=== PATIENT | female | born 1955 | race Caucasian/White ===

== ENCOUNTER 2018-09-13 13:31 | Emergency (ER) | payer SELFPAY ==
[2018-09-13 19:05] LABS: WHITE BLOOD COUNT 6.4 10^3/ul (4.8-10.8)
[2018-09-13 19:05] LABS: ABNORMAL IP MESSAGE 1; HEMATOCRIT 30.7 % (37.0-47.0); HEMOGLOBIN 10.2 g/dl (12.0-16.0); MEAN CORPUSCULAR HEMOGLOBIN 32.3 pg (29.0-33.0); MEAN CORPUSCULAR HGB CONC 33.2 g/dl (32.0-37.0); MEAN CORPUSCULAR VOLUME 97.2 fl (82.0-101.0); PLATELET COUNT 89 10^3/UL (140-415); RED BLOOD COUNT 3.16 10^6/ul (4.20-5.40); RED CELL DISTRIBUTION WIDTH 13.3 % (11.5-14.5)
[2018-09-13 19:08] LABS: ADD MAN DIFF? YES; POSITIVE DIFF @See below
[2018-09-13 19:14] LABS: ADD UMIC YES; UR ASCORBIC ACID NEGATIVE (NEGATIVE); UR BACTERIA FEW /HPF (NONE SEEN); UR BILIRUBIN (Dip) NEGATIVE (NEGATIVE); UR BLOOD (Dip) 2+ mg/dL (NEGATIVE); UR CLARITY CLEAR (CLEAR); UR COLOR STRAW (YELLOW); UR GLUCOSE (Dip) NEGATIVE (NEGATIVE); UR KETONES (Dip) NEGATIVE (NEGATIVE); UR LEUKOCYTE ESTERASE (Dip) 1+ Leu/ul (NEGATIVE); UR NITRITE (Dip) NEGATIVE (NEGATIVE); UR RBC 1 /HPF (0-5); UR SPECIFIC GRAVITY (Dip) 1.003 (1.003-1.030); UR TOTAL PROTEIN (Dip) NEGATIVE (NEGATIVE); UR UROBILINOGEN (Dip) NEGATIVE (NEGATIVE); UR WBC 4 /HPF (0-5)
[2018-09-13] MEDS: SOD CHLORIDE 0.9% 1,000 ML IV (19:28)
[2018-09-13] MEDS: ONDANSETRON 4 MG INJ IV (19:29)
[2018-09-13] MEDS: KETOROLAC 15 MG INJ IV (19:29)
[2018-09-13 19:31] LABS: ALANINE AMINOTRANSFERASE 24 IU/L (13-69); ALBUMIN 3.4 g/dl (3.3-4.9); ALKALINE PHOSPHATASE 127 IU/L (42-121); ANION GAP 10 (5-13); ASPARTATE AMINO TRANSFERASE 30 IU/L (15-46); BILIRUBIN,INDIRECT 0.2 mg/dl (0-1.1); BILIRUBIN,TOTAL 0.2 mg/dl (0.2-1.3); BLOOD UREA NITROGEN 10 mg/dl (7-20); CALCIUM 8.1 mg/dl (8.4-10.2); CARBON DIOXIDE 26 mmol/L (21-31); CHLORIDE 100 mmol/L (97-110); CREATININE 0.88 mg/dl (0.44-1.00); Estimated GFR > 60 mL/min (>60); GLUCOSE 113 mg/dl (70-220); LIPASE 59 U/L (23-300); POTASSIUM 4.1 mmol/L (3.5-5.1); SODIUM 136 mmol/L (135-144)
[2018-09-13] MEDS: CEFTRIAXONE 1 GM/50 ML (PMX) 50 ML IVPB (20:59)
[2018-09-13 22:15] LABS: ANISOCYTOSIS 1+ (0-0); LYMPHOCYTES #M 1.1 10^3/ul (0.8-2.9); LYMPHOCYTES % (M) 18 % (15-51); MONOCYTE #M 0.7 10^3/ul (0.3-0.9); MONOCYTES % (M) 11 % (0-11); REACTIVE LYMPHOCYTES #M 0.3 10^3/ul (0.0-0.0); REACTIVE LYMPHOCYTES% (M) 6 % (0-0); SEGMENTED NEUTROPHILS (M) % 65 % (39-77); SMUDGE%M 25 % (0-0)
== END 2018-09-13 21:37 | disposition home or self-care (01) ==
LOC: E/R 13:31
DX: N39.0 Urinary tract infection, site not specified (principal); C43.9 Malignant melanoma of skin, unspecified; R91.1 Solitary pulmonary nodule
CPT/HCPCS: 36415; 74176; 80053; 81001; 83605; 83690; 85025; 87040; 87086; 96361; 96374; 96375; 99285-25

== ENCOUNTER 2018-09-19 10:33 | Inpatient (IN) | payer OTHER ==
[~2018-09-19 10:33] MED LIST: ETOMIDATE 20 MG INJ; SUCCINYLCHOLINE CHLORIDE 100 MG/5 ML SYG IV
[2018-09-19 11:20] LABS: ADD MAN DIFF? NO
[2018-09-19] MEDS: SODIUM CHLORIDE 0.9% 1L BAG IV* (11:21)
[2018-09-19 11:24] LABS: WHITE BLOOD COUNT 8.6 10^3/ul (4.8-10.8)
[2018-09-19 11:24] LABS: BASOPHILS % 0.2 % (0.0-2.0); EOSINOPHILS # 0.2 10^3/ul (0.0-0.5); EOSINOPHILS % 2.2 % (0.0-7.0); HEMATOCRIT 27.8 % (37.0-47.0); LYMPHOCYTES # 2.1 10^3/ul (0.8-2.9); LYMPHOCYTES % 24.6 % (15.0-51.0); MEAN CORPUSCULAR HEMOGLOBIN 32.1 pg (29.0-33.0); MEAN CORPUSCULAR HGB CONC 32.4 g/dl (32.0-37.0); MEAN CORPUSCULAR VOLUME 99.3 fl (82.0-101.0); MEAN PLATELET VOLUME 10.9 fl (7.4-10.4); MONOCYTES % 11.8 % (0.0-11.0); NEUTROPHIL # 5.2 10^3/ul (1.6-7.5); NEUTROPHILS % 60.7 % (39.0-77.0); NUCLEATED RED BLOOD CELLS% 0.2 /100WBC (0.0-0.0); PLATELET COUNT 125 10^3/UL (140-415); RED CELL DISTRIBUTION WIDTH 14.1 % (11.5-14.5)
[2018-09-19] MEDS: AZTREONAM 1 GM/NS (PMX) 50 ML IVPB ×2 (11:25→21:47)
[2018-09-19 11:44] LABS: INR 1.07; PT RATIO 1.1
[2018-09-19 11:45] LABS: PARTIAL THROMBOPLASTIN TIME 37.4 Sec (23.0-35.0)
[2018-09-19 11:47] LABS: ALANINE AMINOTRANSFERASE 19 IU/L (13-69); ALBUMIN/GLOBULIN RATIO 1.11; ALKALINE PHOSPHATASE 209 IU/L (42-121); ANION GAP 12 (5-13); ASPARTATE AMINO TRANSFERASE 33 IU/L (15-46); BILIRUBIN,INDIRECT 0.2 mg/dl (0-1.1); BILIRUBIN,TOTAL 0.2 mg/dl (0.2-1.3); BLOOD UREA NITROGEN 20 mg/dl (7-20); CALCIUM 7.7 mg/dl (8.4-10.2); CARBON DIOXIDE 24 mmol/L (21-31); CHLORIDE 101 mmol/L (97-110); CREATININE 1.02 mg/dl (0.44-1.00); Estimated GFR 55 mL/min (>60); GLUCOSE 112 mg/dl (70-220); POTASSIUM 3.6 mmol/L (3.5-5.1); SODIUM 137 mmol/L (135-144); TOTAL PROTEIN 5.7 g/dl (6.1-8.1)
[2018-09-19 11:57] LABS: TROPONIN-I < 0.012 ng/ml (0.000-0.120)
[2018-09-19] MEDS: LORAZEPAM 2 MG INJ IV (12:15)
[2018-09-19] MEDS: LEVALBUTEROL (NEB) 1.25 MG/0.5 ML AMP INH (12:16)
[2018-09-19] MEDS: VANCOMYCIN 1 GM (PMX) 250 ML IVPB (12:16)
[2018-09-19] MEDS: IPRATROPIUM (NEB) 0.5 MG/2.5 ML AMP INH (12:17)
[2018-09-19] MEDS: ETOMIDATE 20 MG INJ IV (12:51)
[2018-09-19] MEDS: SUCCINYLCHOLINE CHLORIDE 100 MG/5 ML SYG IV (12:51)
[2018-09-19] MEDS ORDERED: MIDAZOLAM 5 MG/ML 1 ML (13:02)
[2018-09-19] MEDS: MIDAZOLAM (DRIP) 50 mg/50 mL 50 ML IV ×3 (13:08→23:57)
[2018-09-19] MEDS ORDERED: ONDANSETRON 4 MG INJ IV (13:30)
[2018-09-19] MEDS ORDERED: NACL 0.9% 3 ML SYG IV (13:30)
[2018-09-19] MEDS ORDERED: VANCOMYCIN IV PER PHARMACY XX (13:30)
[2018-09-19] MEDS: HYDROmorphONE 1 MG/ML SYG IV (13:37)
[2018-09-19] MEDS: MIDAZOLAM 1 MG/ML 5 ML INJ IV (13:38)
[2018-09-19] MEDS: NORepinephrine 8MG/250 ML (PMX 250 ML IV (13:38)
[2018-09-19 13:52] LABS: LACTIC ACID 4.2 mmol/L (0.5-2.0)
[2018-09-19 13:53] LABS: ADD UMIC YES; UR ASCORBIC ACID 40 mg/dL (NEGATIVE); UR BILIRUBIN (Dip) NEGATIVE (NEGATIVE); UR BLOOD (Dip) NEGATIVE (NEGATIVE); UR CLARITY SLIGHTLY CLOUDY (CLEAR); UR COLOR YELLOW (YELLOW); UR GLUCOSE (Dip) NEGATIVE (NEGATIVE); UR KETONES (Dip) NEGATIVE (NEGATIVE); UR LEUKOCYTE ESTERASE (Dip) NEGATIVE Leu/ul (NEGATIVE); UR MUCUS FEW /HPF (NONE SEEN); UR NITRITE (Dip) NEGATIVE (NEGATIVE); UR RBC 5 /HPF (0-5); UR SPECIFIC GRAVITY (Dip) 1.027 (1.003-1.030); UR TOTAL PROTEIN (Dip) 1+ mg/dl (NEGATIVE); UR UROBILINOGEN (Dip) NEGATIVE (NEGATIVE); UR WBC 1 /HPF (0-5)
[2018-09-19 14:20] LABS: AADO2 Arterial 282.7 mmHg (7.0-24.0); Allen Test ACCEPTAB; Arterial Base Excess -2.8 mmol/L (-3.0-3); Arterial Blood Gas Oxygen Sat 87.9 mmHG (95.0-98.0); Arterial COHb 0.1 % (0.0-3.0); Arterial Fraction of Oxyhgb 87.6 % (93.0-99.0); Arterial HCO3 21.5 mmol/L (22.0-26.0); Arterial MetHb 0.2 % (0.0-1.5); Arterial pCO2 35.3 mmhg (35-45); MODE MASK - SIMPLE; Site Left Radial
[2018-09-19] MEDS ORDERED: AZTREONAM 1 GM/NS (PMX) 50 ML IVPB (15:00)
[2018-09-19 15:02] LABS: AADO2 Arterial 597.2 mmHg (7.0-24.0); Allen Test ACCEPTAB; Arterial Base Excess -8.5 mmol/L (-3.0-3); Arterial Blood Gas Oxygen Sat 91.1 mmHG (95.0-98.0); Arterial COHb 0.5 % (0.0-3.0); Arterial Fraction of Oxyhgb 90.3 % (93.0-99.0); Arterial HCO3 18.2 mmol/L (22.0-26.0); Arterial MetHb 0.4 % (0.0-1.5); Arterial pCO2 42.6 mmhg (35-45); MODE VENT - AC; Site Left Radial
[2018-09-19] MEDS: SOD CHLORIDE 0.9% 1,000 ML IV (15:33)
[2018-09-19] MEDS: METHYLPREDNISOLONE 125 MG INJ IV ×2 (15:34→21:47)
[2018-09-19] MEDS: VANCOMYCIN 750 MG (PMX) 250 ML IVPB (19:56)
[2018-09-19] MEDS: morphine SULFATE/PF (2 MG/2 ML) SYG IV (23:43)
[2018-09-20] MEDS: METHYLPREDNISOLONE 125 MG INJ IV ×4 (04:33→22:03)
[2018-09-20 04:39] LABS: ADD MAN DIFF? NO
[2018-09-20 04:41] LABS: WHITE BLOOD COUNT 12.9 10^3/ul (4.8-10.8)
[2018-09-20 04:41] LABS: BASOPHILS % 0.1 % (0.0-2.0); HEMATOCRIT 27.6 % (37.0-47.0); HEMOGLOBIN 8.9 g/dl (12.0-16.0); LYMPHOCYTES % 7.9 % (15.0-51.0); MEAN CORPUSCULAR HGB CONC 32.2 g/dl (32.0-37.0); MEAN CORPUSCULAR VOLUME 99.3 fl (82.0-101.0); MEAN PLATELET VOLUME 10.1 fl (7.4-10.4); MONOCYTE # 0.4 10^3/ul (0.3-0.9); MONOCYTES % 3.2 % (0.0-11.0); NEUTROPHIL # 11.4 10^3/ul (1.6-7.5); NEUTROPHILS % 88.1 % (39.0-77.0); NUCLEATED RED BLOOD CELLS% 0.2 /100WBC (0.0-0.0); PLATELET COUNT 126 10^3/UL (140-415); RED BLOOD COUNT 2.78 10^6/ul (4.20-5.40); RED CELL DISTRIBUTION WIDTH 14.2 % (11.5-14.5)
[2018-09-20 04:50] LABS: HEMOGLOBIN A1C 5.3 % (0-5.9)
[2018-09-20 05:05] LABS: ANION GAP 12 (5-13); BLOOD UREA NITROGEN 16 mg/dl (7-20); CALCIUM 7.4 mg/dl (8.4-10.2); CARBON DIOXIDE 21 mmol/L (21-31); CHLORIDE 110 mmol/L (97-110); CREATININE 0.76 mg/dl (0.44-1.00); Estimated GFR > 60 mL/min (>60); GLUCOSE 234 mg/dl (70-220); MAGNESIUM 2.8 mg/dl (1.7-2.5); PHOSPHORUS 2.9 mg/dl (2.5-4.9); POTASSIUM 4.9 mmol/L (3.5-5.1); SODIUM 143 mmol/L (135-144)
[2018-09-20] MEDS: morphine SULFATE/PF (2 MG/2 ML) SYG IV (05:18)
[2018-09-20] MEDS: AZTREONAM 1 GM/NS (PMX) 50 ML IVPB ×3 (05:23→22:03)
[2018-09-20] MEDS: PANTOPRAZOLE 40 MG INJ IV (05:26)
[2018-09-20] MEDS: MIDAZOLAM (DRIP) 50 mg/50 mL 50 ML IV (06:49)
[2018-09-20 07:38] LABS: AADO2 Arterial 594.6 mmHg (7.0-24.0); Allen Test ACCEPTAB; Arterial Base Excess -4.7 mmol/L (-3.0-3); Arterial Blood Gas Oxygen Sat 95.7 mmHG (95.0-98.0); Arterial COHb 0.3 % (0.0-3.0); Arterial Fraction of Oxyhgb 95.3 % (93.0-99.0); Arterial HCO3 20.1 mmol/L (22.0-26.0); Arterial MetHb 0.1 % (0.0-1.5); Arterial pCO2 36.2 mmhg (35-45); MODE VENT - AC; Site Left Radial
[2018-09-20] MEDS: SOD CHLORIDE 0.9% 1,000 ML IV (07:59)
[2018-09-20] MEDS: VANCOMYCIN 750 MG (PMX) 250 ML IVPB (07:59)
[2018-09-20] MEDS: PROPOFOL 100 ML IV ×2 (09:42→18:00)
[2018-09-20 10:24] LABS: LACTIC ACID 1.9 mmol/L (0.5-2.0)
[2018-09-20] MEDS ORDERED: DEXTROSE 50% 50 ML SYRINGE IV ×2 (10:30)
[2018-09-20] MEDS: INSULIN HUMAN REGULAR 100 UNIT in SOD CHLORIDE 0.9% 99 ML IV ×3 (11:00→12:03)
[2018-09-20] MEDS: ACCU-CHEK XX ×13 (11:00→22:43)
[2018-09-20] MEDS: FENTAnyl (DRIP) 1000 mcg/100mL 100 ML IV (11:58)
[2018-09-20] MEDS: LIDOCAINE 1% (MPF) 5 ML VIAL SC (12:50)
[2018-09-20 20:39] LABS: VANCOMYCIN,TROUGH 8.2 ug/ml (10.0-20.0)
[2018-09-20] MEDS: VANCOMYCIN 1.25 GM in SOD CHLORIDE 0.9% 250 ML IVPB (20:59)
[2018-09-21] MEDS: ACCU-CHEK XX ×26 (00:25→23:20)
[2018-09-21] MEDS: PROPOFOL 100 ML IV ×3 (02:19→21:49)
[2018-09-21] MEDS: METHYLPREDNISOLONE 125 MG INJ IV ×4 (03:31→20:59)
[2018-09-21 04:59] LABS: ADD MAN DIFF? NO
[2018-09-21 05:11] LABS: ABNORMAL IP MESSAGE 1; BASOPHILS % 0.1 % (0.0-2.0); HEMATOCRIT 24.9 % (37.0-47.0); HEMOGLOBIN 8.2 g/dl (12.0-16.0); LYMPHOCYTES # 0.9 10^3/ul (0.8-2.9); LYMPHOCYTES % 6.7 % (15.0-51.0); MEAN CORPUSCULAR HEMOGLOBIN 32.4 pg (29.0-33.0); MEAN CORPUSCULAR HGB CONC 32.9 g/dl (32.0-37.0); MEAN CORPUSCULAR VOLUME 98.4 fl (82.0-101.0); MEAN PLATELET VOLUME 10.5 fl (7.4-10.4); MONOCYTE # 0.5 10^3/ul (0.3-0.9); MONOCYTES % 3.4 % (0.0-11.0); NEUTROPHIL # 11.9 10^3/ul (1.6-7.5); NEUTROPHILS % 88.8 % (39.0-77.0); NUCLEATED RED BLOOD CELLS # 0.1 10^3/ul (0.0-0.0); NUCLEATED RED BLOOD CELLS% 0.6 /100WBC (0.0-0.0); RED BLOOD COUNT 2.53 10^6/ul (4.20-5.40); RED CELL DISTRIBUTION WIDTH 14.6 % (11.5-14.5)
[2018-09-21 05:11] LABS: WHITE BLOOD COUNT 13.4 10^3/ul (4.8-10.8)
[2018-09-21 05:37] LABS: ANION GAP 5 (5-13); BLOOD UREA NITROGEN 19 mg/dl (7-20); CALCIUM 7.8 mg/dl (8.4-10.2); CARBON DIOXIDE 23 mmol/L (21-31); CHLORIDE 113 mmol/L (97-110); CREATININE 0.79 mg/dl (0.44-1.00); Estimated GFR > 60 mL/min (>60); GLUCOSE 154 mg/dl (70-220); POTASSIUM 4.6 mmol/L (3.5-5.1); SODIUM 141 mmol/L (135-144)
[2018-09-21] MEDS: PANTOPRAZOLE 40 MG INJ IV (05:46)
[2018-09-21 05:52] LABS: POSITIVE DIFF @See below
[2018-09-21 05:53] LABS: PLATELET COUNT 98 10^3/UL (140-415)
[2018-09-21] MEDS: AZTREONAM 1 GM/NS (PMX) 50 ML IVPB ×3 (06:12→21:49)
[2018-09-21 07:41] LABS: AADO2 Arterial 446.3 mmHg (7.0-24.0); Allen Test ACCEPTAB; Arterial Blood Gas Oxygen Sat 96.2 mmHG (95.0-98.0); Arterial COHb 0.3 % (0.0-3.0); Arterial Fraction of Oxyhgb 95.7 % (93.0-99.0); Arterial HCO3 22.5 mmol/L (22.0-26.0); Arterial MetHb 0.2 % (0.0-1.5); Arterial pCO2 37.3 mmhg (35-45); MODE VENT - AC; Site Left Radial
[2018-09-21] MEDS: VANCOMYCIN 1.25 GM in SOD CHLORIDE 0.9% 250 ML IVPB ×2 (10:33→20:59)
[2018-09-21] MEDS: LEVOFLOXACIN 750MG/D5W (PMX) 150 ML IVPB (11:49)
[2018-09-21] MEDS: SOD CHLORIDE 0.9% 1,000 ML IV (15:11)
[2018-09-21] MEDS: INSULIN HUMAN REGULAR 100 UNIT in SOD CHLORIDE 0.9% 99 ML IV (17:05)
[2018-09-21] MEDS: FENTAnyl (DRIP) 1000 mcg/100mL 100 ML IV (19:18)
[2018-09-22] MEDS: ACCU-CHEK XX ×24 (01:05→23:42)
[2018-09-22] MEDS: METHYLPREDNISOLONE 125 MG INJ IV ×4 (03:47→21:03)
[2018-09-22] MEDS: PROPOFOL 100 ML IV ×4 (03:59→23:31)
[2018-09-22 05:03] LABS: ADD MAN DIFF? NO
[2018-09-22 05:09] LABS: WHITE BLOOD COUNT 10.4 10^3/ul (4.8-10.8)
[2018-09-22 05:09] LABS: ABNORMAL IP MESSAGE 1; BASOPHILS % 0.2 % (0.0-2.0); HEMATOCRIT 26.1 % (37.0-47.0); HEMOGLOBIN 8.1 g/dl (12.0-16.0); LYMPHOCYTES # 0.9 10^3/ul (0.8-2.9); LYMPHOCYTES % 8.4 % (15.0-51.0); MEAN CORPUSCULAR HEMOGLOBIN 31.9 pg (29.0-33.0); MEAN CORPUSCULAR VOLUME 102.8 fl (82.0-101.0); MEAN PLATELET VOLUME 10.5 fl (7.4-10.4); MONOCYTE # 0.4 10^3/ul (0.3-0.9); MONOCYTES % 3.9 % (0.0-11.0); NEUTROPHIL # 8.9 10^3/ul (1.6-7.5); NUCLEATED RED BLOOD CELLS # 0.2 10^3/ul (0.0-0.0); NUCLEATED RED BLOOD CELLS% 1.4 /100WBC (0.0-0.0); PLATELET COUNT 77 10^3/UL (140-415); RED BLOOD COUNT 2.54 10^6/ul (4.20-5.40); RED CELL DISTRIBUTION WIDTH 14.9 % (11.5-14.5)
[2018-09-22 05:15] LABS: POSITIVE DIFF @See below
[2018-09-22 05:27] LABS: ANION GAP 5 (5-13); BLOOD UREA NITROGEN 32 mg/dl (7-20); CALCIUM 7.7 mg/dl (8.4-10.2); CARBON DIOXIDE 24 mmol/L (21-31); CHLORIDE 113 mmol/L (97-110); CREATININE 0.87 mg/dl (0.44-1.00); Estimated GFR > 60 mL/min (>60); GLUCOSE 165 mg/dl (70-220); POTASSIUM 5.1 mmol/L (3.5-5.1); SODIUM 142 mmol/L (135-144)
[2018-09-22] MEDS: PANTOPRAZOLE 40 MG INJ IV (05:43)
[2018-09-22] MEDS: AZTREONAM 1 GM/NS (PMX) 50 ML IVPB ×3 (06:18→21:03)
[2018-09-22 09:17] LABS: VANCOMYCIN,TROUGH 17.1 ug/ml (10.0-20.0)
[2018-09-22] MEDS: VANCOMYCIN 1.25 GM in SOD CHLORIDE 0.9% 250 ML IVPB (10:57)
[2018-09-22] MEDS: LEVOFLOXACIN 750MG/D5W (PMX) 150 ML IVPB (12:02)
[2018-09-22] MEDS: OCULAR LUBRICANT 3.5 GM OPH OINT BOTH EYES ×2 (13:07→21:03)
[2018-09-22] MEDS: ARTIFICIAL TEARS 15 ML OPH BOTH EYES ×3 (13:07→21:04)
[2018-09-22] MEDS: SOD CHLORIDE 0.9% 1,000 ML IV (13:07)
[2018-09-22] MEDS: FENTAnyl (DRIP) 1000 mcg/100mL 100 ML IV (15:10)
[2018-09-22] MEDS: VANCOMYCIN 1 GM 250 ML IVPB (23:33)
[2018-09-22] MEDS ORDERED: NORepinephrine 8MG/250 ML (PMX 250 ML IV (23:45)
[2018-09-23] MEDS: ACCU-CHEK XX ×24 (01:06→23:57)
[2018-09-23] MEDS: FENTAnyl (DRIP) 1000 mcg/100mL 100 ML IV ×3 (01:11→20:15)
[2018-09-23] MEDS: METHYLPREDNISOLONE 125 MG INJ IV ×4 (02:58→21:28)
[2018-09-23] MEDS: PROPOFOL 100 ML IV ×5 (02:58→21:49)
[2018-09-23 05:27] LABS: ADD MAN DIFF? NO
[2018-09-23 05:30] LABS: ABNORMAL IP MESSAGE 1; BASOPHILS % 0.2 % (0.0-2.0); HEMATOCRIT 25.3 % (37.0-47.0); HEMOGLOBIN 8.1 g/dl (12.0-16.0); LYMPHOCYTES # 0.8 10^3/ul (0.8-2.9); LYMPHOCYTES % 12.5 % (15.0-51.0); MEAN CORPUSCULAR HEMOGLOBIN 32.4 pg (29.0-33.0); MEAN CORPUSCULAR VOLUME 101.2 fl (82.0-101.0); MEAN PLATELET VOLUME 11.7 fl (7.4-10.4); MONOCYTE # 0.3 10^3/ul (0.3-0.9); MONOCYTES % 4.9 % (0.0-11.0); NEUTROPHIL # 4.8 10^3/ul (1.6-7.5); NEUTROPHILS % 79.1 % (39.0-77.0); NUCLEATED RED BLOOD CELLS # 0.2 10^3/ul (0.0-0.0); NUCLEATED RED BLOOD CELLS% 3.6 /100WBC (0.0-0.0); PLATELET COUNT 62 10^3/UL (140-415); RED CELL DISTRIBUTION WIDTH 14.6 % (11.5-14.5)
[2018-09-23 05:30] LABS: WHITE BLOOD COUNT 6.1 10^3/ul (4.8-10.8)
[2018-09-23 05:35] LABS: POSITIVE DIFF @See below
[2018-09-23 05:49] LABS: ANION GAP 7 (5-13); BLOOD UREA NITROGEN 34 mg/dl (7-20); CALCIUM 7.9 mg/dl (8.4-10.2); CARBON DIOXIDE 25 mmol/L (21-31); CHLORIDE 111 mmol/L (97-110); CREATININE 0.79 mg/dl (0.44-1.00); Estimated GFR > 60 mL/min (>60); GLUCOSE 144 mg/dl (70-220); POTASSIUM 4.7 mmol/L (3.5-5.1); SODIUM 143 mmol/L (135-144)
[2018-09-23] MEDS: PANTOPRAZOLE 40 MG INJ IV (05:54)
[2018-09-23] MEDS: AZTREONAM 1 GM/NS (PMX) 50 ML IVPB ×3 (05:54→22:22)
[2018-09-23] MEDS: OCULAR LUBRICANT 3.5 GM OPH OINT BOTH EYES ×4 (09:00→21:29)
[2018-09-23] MEDS: ARTIFICIAL TEARS 15 ML OPH BOTH EYES ×4 (09:14→21:28)
[2018-09-23] MEDS: LEVOFLOXACIN 750MG/D5W (PMX) 150 ML IVPB (10:20)
[2018-09-23] MEDS: INFLIXIMAB 300 MG in SOD CHLORIDE 0.9% 300 ML IV (12:40)
[2018-09-23] MEDS: ACETAMINOPHEN 325 MG TAB PO ×2 (12:50→14:42)
[2018-09-23] MEDS: VANCOMYCIN 1 GM 250 ML IVPB (13:01)
[2018-09-23] MEDS: SOD CHLORIDE 0.9% 1,000 ML IV (13:19)
[2018-09-24] MEDS: ACCU-CHEK XX ×24 (01:00→23:30)
[2018-09-24] MEDS: VANCOMYCIN 1 GM 250 ML IVPB (01:18)
[2018-09-24] MEDS: PROPOFOL 100 ML IV ×4 (02:50→20:15)
[2018-09-24] MEDS: METHYLPREDNISOLONE 125 MG INJ IV ×3 (03:33→20:16)
[2018-09-24] MEDS: FENTAnyl (DRIP) 1000 mcg/100mL 100 ML IV ×3 (04:08→20:54)
[2018-09-24 04:44] LABS: AADO2 Arterial 447.8 mmHg (7.0-24.0); Allen Test ACCEPTAB; Arterial Base Excess -1.1 mmol/L (-3.0-3); Arterial Blood Gas Oxygen Sat 95.7 mmHG (95.0-98.0); Arterial COHb 0 % (0.0-3.0); Arterial Fraction of Oxyhgb 95.4 % (93.0-99.0); Arterial HCO3 23.2 mmol/L (22.0-26.0); Arterial MetHb 0.3 % (0.0-1.5); Arterial pCO2 37.6 mmhg (35-45); MODE VENT - AC; Site Right Radial
[2018-09-24 05:09] LABS: ADD MAN DIFF? NO
[2018-09-24 05:16] LABS: WHITE BLOOD COUNT 9.8 10^3/ul (4.8-10.8)
[2018-09-24 05:16] LABS: ABNORMAL IP MESSAGE 1; BASOPHILS % 0.1 % (0.0-2.0); HEMOGLOBIN 9.1 g/dl (12.0-16.0); LYMPHOCYTES # 1.2 10^3/ul (0.8-2.9); MEAN CORPUSCULAR HEMOGLOBIN 32.3 pg (29.0-33.0); MEAN CORPUSCULAR HGB CONC 32.5 g/dl (32.0-37.0); MEAN CORPUSCULAR VOLUME 99.3 fl (82.0-101.0); MEAN PLATELET VOLUME 11.5 fl (7.4-10.4); MONOCYTE # 0.5 10^3/ul (0.3-0.9); MONOCYTES % 4.8 % (0.0-11.0); NEUTROPHIL # 7.6 10^3/ul (1.6-7.5); NEUTROPHILS % 77.5 % (39.0-77.0); NUCLEATED RED BLOOD CELLS # 0.3 10^3/ul (0.0-0.0); NUCLEATED RED BLOOD CELLS% 2.9 /100WBC (0.0-0.0); PLATELET COUNT 76 10^3/UL (140-415); RED BLOOD COUNT 2.82 10^6/ul (4.20-5.40); RED CELL DISTRIBUTION WIDTH 14.6 % (11.5-14.5)
[2018-09-24 05:20] LABS: POSITIVE DIFF @See below
[2018-09-24] MEDS: PANTOPRAZOLE 40 MG INJ IV (05:30)
[2018-09-24] MEDS: AZTREONAM 1 GM/NS (PMX) 50 ML IVPB ×3 (05:30→21:57)
[2018-09-24 05:41] LABS: ANION GAP 8 (5-13); BLOOD UREA NITROGEN 34 mg/dl (7-20); CALCIUM 8.1 mg/dl (8.4-10.2); CARBON DIOXIDE 25 mmol/L (21-31); CHLORIDE 110 mmol/L (97-110); CREATININE 0.78 mg/dl (0.44-1.00); Estimated GFR > 60 mL/min (>60); GLUCOSE 147 mg/dl (70-220); POTASSIUM 4.6 mmol/L (3.5-5.1); SODIUM 143 mmol/L (135-144)
[2018-09-24 06:10] LABS: LACTIC ACID 2.6 mmol/L (0.5-2.0)
[2018-09-24] MEDS: ARTIFICIAL TEARS 15 ML OPH BOTH EYES ×4 (08:09→20:50)
[2018-09-24] MEDS: OCULAR LUBRICANT 3.5 GM OPH OINT BOTH EYES ×3 (08:09→20:51)
[2018-09-24] MEDS: LEVOFLOXACIN 750MG/D5W (PMX) 150 ML IVPB (11:08)
[2018-09-24] MEDS: FUROSEMIDE 20 MG INJ IV (11:08)
[2018-09-25] MEDS: MIDAZOLAM (DRIP) 50 mg/50 mL 50 ML IV ×3 (00:14→20:36)
[2018-09-25] MEDS: ACCU-CHEK XX ×25 (01:20→23:57)
[2018-09-25] MEDS: FENTAnyl (DRIP) 1000 mcg/100mL 100 ML IV ×3 (01:47→23:45)
[2018-09-25] MEDS: METHYLPREDNISOLONE 125 MG INJ IV ×4 (03:36→20:36)
[2018-09-25 05:09] LABS: ADD MAN DIFF? NO
[2018-09-25 05:14] LABS: ABNORMAL IP MESSAGE 1; BASOPHILS % 0.1 % (0.0-2.0); HEMATOCRIT 24.6 % (37.0-47.0); HEMOGLOBIN 7.8 g/dl (12.0-16.0); LYMPHOCYTES # 0.7 10^3/ul (0.8-2.9); LYMPHOCYTES % 9.6 % (15.0-51.0); MEAN CORPUSCULAR HEMOGLOBIN 31.6 pg (29.0-33.0); MEAN CORPUSCULAR HGB CONC 31.7 g/dl (32.0-37.0); MEAN CORPUSCULAR VOLUME 99.6 fl (82.0-101.0); MEAN PLATELET VOLUME 11.1 fl (7.4-10.4); MONOCYTE # 0.2 10^3/ul (0.3-0.9); MONOCYTES % 2.5 % (0.0-11.0); NEUTROPHIL # 5.8 10^3/ul (1.6-7.5); NEUTROPHILS % 83.9 % (39.0-77.0); NUCLEATED RED BLOOD CELLS # 0.1 10^3/ul (0.0-0.0); NUCLEATED RED BLOOD CELLS% 1.7 /100WBC (0.0-0.0); PLATELET COUNT 57 10^3/UL (140-415); RED BLOOD COUNT 2.47 10^6/ul (4.20-5.40); RED CELL DISTRIBUTION WIDTH 14.9 % (11.5-14.5)
[2018-09-25 05:14] LABS: WHITE BLOOD COUNT 6.9 10^3/ul (4.8-10.8)
[2018-09-25 05:19] LABS: AADO2 Arterial 392.1 mmHg (7.0-24.0); Allen Test ACCEPTAB; Arterial Base Excess 2.6 mmol/L (-3.0-3); Arterial Blood Gas Oxygen Sat 98.2 mmHG (95.0-98.0); Arterial COHb 0.3 % (0.0-3.0); Arterial Fraction of Oxyhgb 97.6 % (93.0-99.0); Arterial HCO3 27.4 mmol/L (22.0-26.0); Arterial MetHb 0.3 % (0.0-1.5); Arterial pCO2 43.1 mmhg (35-45); MODE VENT - AC; Site Right Radial
[2018-09-25 05:25] LABS: POSITIVE DIFF @See below
[2018-09-25 05:27] LABS: LACTIC ACID 1.7 mmol/L (0.5-2.0)
[2018-09-25 05:35] LABS: ANION GAP 4 (5-13); BLOOD UREA NITROGEN 34 mg/dl (7-20); CALCIUM 7.6 mg/dl (8.4-10.2); CARBON DIOXIDE 28 mmol/L (21-31); CHLORIDE 106 mmol/L (97-110); CREATININE 0.72 mg/dl (0.44-1.00); Estimated GFR > 60 mL/min (>60); GLUCOSE 138 mg/dl (70-220); POTASSIUM 4.7 mmol/L (3.5-5.1); SODIUM 138 mmol/L (135-144)
[2018-09-25] MEDS: AZTREONAM 1 GM/NS (PMX) 50 ML IVPB ×3 (05:59→21:40)
[2018-09-25] MEDS: PANTOPRAZOLE 40 MG INJ IV (05:59)
[2018-09-25] MEDS: FUROSEMIDE 20 MG INJ IV (09:13)
[2018-09-25] MEDS: ARTIFICIAL TEARS 15 ML OPH BOTH EYES ×4 (09:13→20:36)
[2018-09-25] MEDS: OCULAR LUBRICANT 3.5 GM OPH OINT BOTH EYES ×3 (09:13→20:36)
[2018-09-25] MEDS: ENOXAPARIN 40 MG/0.4 ML SYG SC (09:20)
[2018-09-25] MEDS: LEVOFLOXACIN 750MG/D5W (PMX) 150 ML IVPB (10:45)
[2018-09-25] MEDS: PROPOFOL 100 ML IV (20:09)
[2018-09-26] MEDS: ACCU-CHEK XX ×13 (02:15→14:54)
[2018-09-26] MEDS: METHYLPREDNISOLONE 125 MG INJ IV ×4 (03:13→21:33)
[2018-09-26] MEDS: MIDAZOLAM (DRIP) 50 mg/50 mL 50 ML IV ×3 (03:13→19:27)
[2018-09-26] MEDS: PANTOPRAZOLE 40 MG INJ IV (05:34)
[2018-09-26] MEDS: AZTREONAM 1 GM/NS (PMX) 50 ML IVPB ×3 (05:34→21:33)
[2018-09-26 09:11] LABS: AADO2 Arterial 610.6 mmHg (7.0-24.0); Allen Test ACCEPTAB; Arterial Base Excess 6.8 mmol/L (-3.0-3); Arterial Blood Gas Oxygen Sat 92.4 mmHG (95.0-98.0); Arterial COHb 0.3 % (0.0-3.0); Arterial Fraction of Oxyhgb 91.8 % (93.0-99.0); Arterial HCO3 30.1 mmol/L (22.0-26.0); Arterial MetHb 0.3 % (0.0-1.5); Arterial pCO2 37.5 mmhg (35-45); MODE VENT - AC; Site Left Radial
[2018-09-26] MEDS: LEVOFLOXACIN 750MG/D5W (PMX) 150 ML IVPB (09:26)
[2018-09-26] MEDS: PROPOFOL 100 ML IV ×2 (09:30→20:42)
[2018-09-26] MEDS: OCULAR LUBRICANT 3.5 GM OPH OINT BOTH EYES ×3 (09:30→21:32)
[2018-09-26] MEDS: ARTIFICIAL TEARS 15 ML OPH BOTH EYES ×4 (09:30→21:32)
[2018-09-26] MEDS: FUROSEMIDE 20 MG INJ IV (09:40)
[2018-09-26] MEDS: ENOXAPARIN 40 MG/0.4 ML SYG SC (09:45)
[2018-09-26 10:35] LABS: ADD MAN DIFF? NO
[2018-09-26 10:37] LABS: ABNORMAL IP MESSAGE 1; HEMOGLOBIN 9.6 g/dl (12.0-16.0); LYMPHOCYTES # 1.6 10^3/ul (0.8-2.9); LYMPHOCYTES % 20.4 % (15.0-51.0); MEAN CORPUSCULAR HGB CONC 33.1 g/dl (32.0-37.0); MEAN CORPUSCULAR VOLUME 96.7 fl (82.0-101.0); MONOCYTE # 0.5 10^3/ul (0.3-0.9); MONOCYTES % 5.8 % (0.0-11.0); NEUTROPHIL # 5.7 10^3/ul (1.6-7.5); NEUTROPHILS % 70.9 % (39.0-77.0); NUCLEATED RED BLOOD CELLS # 0.2 10^3/ul (0.0-0.0); NUCLEATED RED BLOOD CELLS% 1.9 /100WBC (0.0-0.0); PLATELET COUNT 80 10^3/UL (140-415); RED CELL DISTRIBUTION WIDTH 15.1 % (11.5-14.5)
[2018-09-26 10:57] LABS: PHOSPHORUS 5.1 mg/dl (2.5-4.9)
[2018-09-26 10:57] LABS: ANION GAP 8 (5-13); BLOOD UREA NITROGEN 37 mg/dl (7-20); CARBON DIOXIDE 32 mmol/L (21-31); CHLORIDE 101 mmol/L (97-110); CREATININE 0.73 mg/dl (0.44-1.00); Estimated GFR > 60 mL/min (>60); GLUCOSE 134 mg/dl (70-220); MAGNESIUM 2.4 mg/dl (1.7-2.5); POTASSIUM 4.3 mmol/L (3.5-5.1); SODIUM 141 mmol/L (135-144)
[2018-09-26 10:59] LABS: POSITIVE DIFF @See below
[2018-09-26] MEDS ORDERED: DEXTROSE 50% 50 ML SYRINGE IV ×2 (11:30)
[2018-09-26] MEDS ORDERED: GLUCAGON 1 MG INJ IM (11:30)
[2018-09-26] MEDS: [UNRECOGNIZED DRUG - REMARK] XX (11:30)
[2018-09-26] MEDS ORDERED: GLUCOSE GEL 15 GRAM TUBE PO ×2 (11:30)
[2018-09-26] MEDS ORDERED: GLUCOSE GEL 15 GRAM TUBE BUCCAL (11:30)
[2018-09-26] MEDS: FENTAnyl (DRIP) 1000 mcg/100mL 100 ML IV ×2 (11:38→23:04)
[2018-09-26] MEDS: INSULIN GLARGINE [LANTus] (100 UNITS/ML) SYG SC (11:50)
[2018-09-26] MEDS: SOD CHLORIDE 0.9% 100 ML (14:20)
[2018-09-26] MEDS: IOHEXOL 300MG/ML 150 ML BTL (14:20)
[2018-09-26] MEDS: INSULIN ASPART [NOVOLOG] 3 ML PEN SC ×2 (17:00→21:00)
[2018-09-26] MEDS: morphine LIQ (10 MG/5 ML) CUP GTB (21:33)
[2018-09-27] MEDS: INSULIN ASPART [NOVOLOG] 3 ML PEN SC ×6 (01:06→22:08)
[2018-09-27] MEDS: ACCU-CHEK XX (01:48)
[2018-09-27] MEDS: POLYETHYLENE GLYCOL 17 GM PACKET NGT (03:57)
[2018-09-27] MEDS: DOCUSATE SODIUM 100 MG CAP PO (03:57)
[2018-09-27] MEDS: METHYLPREDNISOLONE 125 MG INJ IV ×4 (03:57→22:09)
[2018-09-27] MEDS: MIDAZOLAM (DRIP) 50 mg/50 mL 50 ML IV (03:58)
[2018-09-27] MEDS: DOCUSATE SODIUM 10 MG/ML (10ML CUP) GTB ×3 (04:06→21:00)
[2018-09-27] MEDS: AZTREONAM 1 GM/NS (PMX) 50 ML IVPB ×2 (05:26→14:36)
[2018-09-27] MEDS: PANTOPRAZOLE 40 MG INJ IV (05:26)
[2018-09-27] MEDS: ARTIFICIAL TEARS 15 ML OPH BOTH EYES ×4 (09:11→21:00)
[2018-09-27] MEDS: FUROSEMIDE 20 MG INJ IV (09:11)
[2018-09-27] MEDS: OCULAR LUBRICANT 3.5 GM OPH OINT BOTH EYES ×3 (09:11→21:00)
[2018-09-27] MEDS: PROPOFOL 100 ML IV ×2 (09:30→21:30)
[2018-09-27] MEDS: INSULIN GLARGINE [LANTus] (100 UNITS/ML) SYG SC (09:34)
[2018-09-27] MEDS: FENTAnyl (DRIP) 1000 mcg/100mL 100 ML IV ×2 (09:34→18:31)
[2018-09-27] MEDS: ENOXAPARIN 40 MG/0.4 ML SYG SC (09:34)
[2018-09-27 09:38] LABS: AADO2 Arterial 574.7 mmHg (7.0-24.0); Allen Test ACCEPTAB; Arterial Base Excess 2.6 mmol/L (-3.0-3); Arterial Blood Gas Oxygen Sat 97.3 mmHG (95.0-98.0); Arterial COHb 0.3 % (0.0-3.0); Arterial Fraction of Oxyhgb 96.7 % (93.0-99.0); Arterial HCO3 25.9 mmol/L (22.0-26.0); Arterial MetHb 0.3 % (0.0-1.5); Arterial pCO2 35.4 mmhg (35-45); MODE VENT - AC; Site Left Radial
[2018-09-27 09:53] LABS: ADD MAN DIFF? NO
[2018-09-27 09:57] LABS: ABNORMAL IP MESSAGE 1; BASOPHILS % 0.1 % (0.0-2.0); HEMATOCRIT 28.6 % (37.0-47.0); HEMOGLOBIN 9.5 g/dl (12.0-16.0); LYMPHOCYTES % 12.9 % (15.0-51.0); MEAN CORPUSCULAR HEMOGLOBIN 32.2 pg (29.0-33.0); MEAN CORPUSCULAR HGB CONC 33.2 g/dl (32.0-37.0); MEAN CORPUSCULAR VOLUME 96.9 fl (82.0-101.0); MEAN PLATELET VOLUME 12.3 fl (7.4-10.4); MONOCYTE # 0.5 10^3/ul (0.3-0.9); MONOCYTES % 6.6 % (0.0-11.0); NUCLEATED RED BLOOD CELLS # 0.1 10^3/ul (0.0-0.0); NUCLEATED RED BLOOD CELLS% 0.6 /100WBC (0.0-0.0); PLATELET COUNT 81 10^3/UL (140-415); RED BLOOD COUNT 2.95 10^6/ul (4.20-5.40); RED CELL DISTRIBUTION WIDTH 14.7 % (11.5-14.5)
[2018-09-27 09:57] LABS: WHITE BLOOD COUNT 7.9 10^3/ul (4.8-10.8)
[2018-09-27 10:11] LABS: POSITIVE DIFF @See below
[2018-09-27 10:19] LABS: ANION GAP 8 (5-13); BLOOD UREA NITROGEN 38 mg/dl (7-20); CALCIUM 7.6 mg/dl (8.4-10.2); CARBON DIOXIDE 29 mmol/L (21-31); CHLORIDE 102 mmol/L (97-110); CREATININE 0.67 mg/dl (0.44-1.00); Estimated GFR > 60 mL/min (>60); GLUCOSE 133 mg/dl (70-220); POTASSIUM 3.9 mmol/L (3.5-5.1); SODIUM 139 mmol/L (135-144)
[2018-09-27] MEDS: LEVOFLOXACIN 750MG/D5W (PMX) 150 ML IVPB (11:03)
[2018-09-27] MEDS: DEXMEDETOMIDINE HCL 200 MCG in SOD CHLORIDE 0.9% 48 ML IV ×2 (11:12→18:39)
[2018-09-27] MEDS: CASPOFUNGIN 50 MG in SOD CHLORIDE 0.9% 250 ML IVPB (11:23)
[2018-09-27] MEDS ORDERED: VANCOMYCIN IV PER PHARMACY XX (17:30)
[2018-09-27] MEDS: MEROPENEM 1 GM/50ML(PMX) 50 ML IVPB ×2 (18:10→22:09)
[2018-09-27 18:18] LABS: LACTIC ACID 2.6 mmol/L (0.5-2.0)
[2018-09-27] MEDS: VANCOMYCIN 1.5 GM in SOD CHLORIDE 0.9% 250 ML IVPB (20:00)
[2018-09-27] MEDS: VORICONAZOLE 200 MG/100 ML 100 ML IVPB (22:03)
[2018-09-27] MEDS: TRIMETHOPRIM/SULFAMETHOX (DS) TAB NGT (23:41)
[2018-09-28] MEDS: INSULIN ASPART [NOVOLOG] 3 ML PEN SC ×6 (01:00→21:00)
[2018-09-28 01:16] LABS: LACTIC ACID 1.7 mmol/L (0.5-2.0)
[2018-09-28] MEDS: ACCU-CHEK XX (01:22)
[2018-09-28] MEDS: METHYLPREDNISOLONE 125 MG INJ IV ×4 (03:17→21:32)
[2018-09-28] MEDS: DEXMEDETOMIDINE HCL 200 MCG in SOD CHLORIDE 0.9% 48 ML IV (04:17)
[2018-09-28] MEDS: FENTAnyl (DRIP) 1000 mcg/100mL 100 ML IV ×2 (04:24→16:29)
[2018-09-28] MEDS: PANTOPRAZOLE 40 MG INJ IV (05:13)
[2018-09-28] MEDS: MEROPENEM 1 GM/50ML(PMX) 50 ML IVPB ×3 (05:13→21:32)
[2018-09-28 05:28] LABS: LACTIC ACID 1.7 mmol/L (0.5-2.0)
[2018-09-28] MEDS: FUROSEMIDE 20 MG INJ IV (08:33)
[2018-09-28] MEDS: POLYETHYLENE GLYCOL 17 GM PACKET NGT (08:33)
[2018-09-28] MEDS: DOCUSATE SODIUM 10 MG/ML (10ML CUP) GTB ×2 (08:33→21:36)
[2018-09-28] MEDS: VANCOMYCIN 1.25 GM in SOD CHLORIDE 0.9% 250 ML IVPB ×2 (08:33→20:00)
[2018-09-28] MEDS: ENOXAPARIN 40 MG/0.4 ML SYG SC (08:38)
[2018-09-28] MEDS: OCULAR LUBRICANT 3.5 GM OPH OINT BOTH EYES ×3 (08:45→16:30)
[2018-09-28] MEDS: ARTIFICIAL TEARS 15 ML OPH BOTH EYES ×4 (08:45→21:33)
[2018-09-28] MEDS: PROPOFOL 100 ML IV ×2 (08:46→21:30)
[2018-09-28] MEDS: INSULIN GLARGINE [LANTus] (100 UNITS/ML) SYG SC (09:47)
[2018-09-28 10:14] LABS: AADO2 Arterial 219.7 mmHg (7.0-24.0); Allen Test ACCEPTAB; Arterial Base Excess -0.2 mmol/L (-3.0-3); Arterial Blood Gas Oxygen Sat 93.8 mmHG (95.0-98.0); Arterial COHb 0.3 % (0.0-3.0); Arterial Fraction of Oxyhgb 93.3 % (93.0-99.0); Arterial HCO3 21.4 mmol/L (22.0-26.0); Arterial MetHb 0.2 % (0.0-1.5); Arterial pCO2 26.1 mmhg (35-45); MODE VENT - AC; Site Left Radial
[2018-09-28] MEDS: VORICONAZOLE 200 MG/100 ML 100 ML IVPB ×2 (14:16→21:32)
[2018-09-28] MEDS: DOCUSATE SODIUM 100 MG CAP PO (21:33)
[2018-09-29] MEDS: INSULIN ASPART [NOVOLOG] 3 ML PEN SC ×6 (01:00→20:32)
[2018-09-29] MEDS: ACCU-CHEK XX (01:45)
[2018-09-29] MEDS: METHYLPREDNISOLONE 125 MG INJ IV ×4 (04:49→20:33)
[2018-09-29] MEDS: MEROPENEM 1 GM/50ML(PMX) 50 ML IVPB ×3 (05:29→22:19)
[2018-09-29] MEDS: PANTOPRAZOLE 40 MG INJ IV (05:29)
[2018-09-29] MEDS: DEXMEDETOMIDINE HCL 200 MCG in SOD CHLORIDE 0.9% 48 ML IV (07:30)
[2018-09-29 07:38] LABS: ADD MAN DIFF? NO
[2018-09-29 07:47] LABS: WHITE BLOOD COUNT 7.7 10^3/ul (4.8-10.8)
[2018-09-29 07:47] LABS: ABNORMAL IP MESSAGE 1; HEMOGLOBIN 9.1 g/dl (12.0-16.0); LYMPHOCYTES # 0.6 10^3/ul (0.8-2.9); LYMPHOCYTES % 8.1 % (15.0-51.0); MEAN CORPUSCULAR HEMOGLOBIN 31.5 pg (29.0-33.0); MEAN CORPUSCULAR HGB CONC 32.5 g/dl (32.0-37.0); MEAN CORPUSCULAR VOLUME 96.9 fl (82.0-101.0); MEAN PLATELET VOLUME 12.7 fl (7.4-10.4); MONOCYTE # 0.5 10^3/ul (0.3-0.9); MONOCYTES % 6.5 % (0.0-11.0); NEUTROPHIL # 6.5 10^3/ul (1.6-7.5); NEUTROPHILS % 84.4 % (39.0-77.0); NUCLEATED RED BLOOD CELLS% 0.3 /100WBC (0.0-0.0); PLATELET COUNT 88 10^3/UL (140-415); RED BLOOD COUNT 2.89 10^6/ul (4.20-5.40); RED CELL DISTRIBUTION WIDTH 15.1 % (11.5-14.5)
[2018-09-29] MEDS: VANCOMYCIN 1.25 GM in SOD CHLORIDE 0.9% 250 ML IVPB (07:55)
[2018-09-29 07:57] LABS: POSITIVE DIFF @See below
[2018-09-29] MEDS: INSULIN GLARGINE [LANTus] (100 UNITS/ML) SYG SC (08:00)
[2018-09-29 08:03] LABS: ANION GAP 5 (5-13); BLOOD UREA NITROGEN 44 mg/dl (7-20); CALCIUM 7.8 mg/dl (8.4-10.2); CARBON DIOXIDE 28 mmol/L (21-31); CHLORIDE 104 mmol/L (97-110); CREATININE 0.71 mg/dl (0.44-1.00); Estimated GFR > 60 mL/min (>60); GLUCOSE 98 mg/dl (70-220); POTASSIUM 4.2 mmol/L (3.5-5.1); SODIUM 137 mmol/L (135-144)
[2018-09-29 08:22] LABS: VANCOMYCIN,TROUGH 16.8 ug/ml (10.0-20.0)
[2018-09-29] MEDS: DOCUSATE SODIUM 10 MG/ML (10ML CUP) GTB ×2 (09:27→20:32)
[2018-09-29] MEDS: POLYETHYLENE GLYCOL 17 GM PACKET NGT (09:27)
[2018-09-29] MEDS: FUROSEMIDE 20 MG INJ IV (09:27)
[2018-09-29] MEDS: ARTIFICIAL TEARS 15 ML OPH BOTH EYES ×4 (09:28→20:32)
[2018-09-29] MEDS: OCULAR LUBRICANT 3.5 GM OPH OINT BOTH EYES ×3 (09:28→20:32)
[2018-09-29] MEDS: PROPOFOL 100 ML IV ×2 (09:30→20:10)
[2018-09-29] MEDS: ENOXAPARIN 40 MG/0.4 ML SYG SC (10:19)
[2018-09-29 10:23] LABS: AADO2 Arterial 171.9 mmHg (7.0-24.0); Allen Test ACCEPTAB; Arterial Base Excess 4.9 mmol/L (-3.0-3); Arterial Blood Gas Oxygen Sat 93.9 mmHG (95.0-98.0); Arterial COHb 0 % (0.0-3.0); Arterial Fraction of Oxyhgb 93.8 % (93.0-99.0); Arterial HCO3 27.7 mmol/L (22.0-26.0); Arterial MetHb 0.1 % (0.0-1.5); Arterial pCO2 34.5 mmhg (35-45); Blood Gas PS 10; MODE VENT - CPAP; Site Left Radial
[2018-09-29] MEDS: HYDROCODONE/APAP (5/325) TAB PO (15:18)
[2018-09-29] MEDS: VORICONAZOLE 200 MG/100 ML 100 ML IVPB ×2 (15:44→20:31)
[2018-09-29] MEDS: DOCUSATE SODIUM 100 MG CAP PO (15:44)
[2018-09-29 19:25] LABS: PNEUM JIROVECCI SRC SPUTUM; PNEUMOCYSTIS JIROVECCI DFA NOT DETECTED
[2018-09-29] MEDS: TRIMETHOPRIM/SULFAMETHOX (DS) TAB NGT (19:48)
[2018-09-29] MEDS: VANCOMYCIN 1 GM 250 ML IVPB (20:36)
[2018-09-29 22:21] LABS: HISTOPLASMA GALACTOMANNAN AG U <0.5
[2018-09-29 23:17] LABS: AADO2 Arterial 228.1 mmHg (7.0-24.0); Allen Test ACCEPTAB; Arterial Base Excess 3.4 mmol/L (-3.0-3); Arterial Blood Gas Oxygen Sat 88.1 mmHG (95.0-98.0); Arterial COHb 0.3 % (0.0-3.0); Arterial Fraction of Oxyhgb 87.6 % (93.0-99.0); Arterial HCO3 26.1 mmol/L (22.0-26.0); Arterial MetHb 0.3 % (0.0-1.5); MODE NASAL CANNULA; Site Right Radial
[2018-09-30] MEDS: INSULIN ASPART [NOVOLOG] 3 ML PEN SC ×6 (01:00→20:35)
[2018-09-30] MEDS: ACCU-CHEK XX (01:27)
[2018-09-30] MEDS: METHYLPREDNISOLONE 125 MG INJ IV ×4 (04:29→20:30)
[2018-09-30 04:45] LABS: ADD MAN DIFF? NO
[2018-09-30 04:46] LABS: ABNORMAL IP MESSAGE 1; BASOPHILS % 0.1 % (0.0-2.0); HEMATOCRIT 29.7 % (37.0-47.0); HEMOGLOBIN 9.7 g/dl (12.0-16.0); LYMPHOCYTES % 8.7 % (15.0-51.0); MEAN CORPUSCULAR HEMOGLOBIN 31.6 pg (29.0-33.0); MEAN CORPUSCULAR HGB CONC 32.7 g/dl (32.0-37.0); MEAN CORPUSCULAR VOLUME 96.7 fl (82.0-101.0); MEAN PLATELET VOLUME 11.8 fl (7.4-10.4); MONOCYTE # 0.6 10^3/ul (0.3-0.9); MONOCYTES % 5.4 % (0.0-11.0); NEUTROPHIL # 9.3 10^3/ul (1.6-7.5); NEUTROPHILS % 84.6 % (39.0-77.0); NUCLEATED RED BLOOD CELLS% 0.2 /100WBC (0.0-0.0); PLATELET COUNT 98 10^3/UL (140-415); RED BLOOD COUNT 3.07 10^6/ul (4.20-5.40); RED CELL DISTRIBUTION WIDTH 14.7 % (11.5-14.5)
[2018-09-30 04:52] LABS: POSITIVE DIFF @See below
[2018-09-30 05:06] LABS: ANION GAP 5 (5-13); BLOOD UREA NITROGEN 44 mg/dl (7-20); CALCIUM 7.6 mg/dl (8.4-10.2); CARBON DIOXIDE 27 mmol/L (21-31); CHLORIDE 106 mmol/L (97-110); CREATININE 0.71 mg/dl (0.44-1.00); Estimated GFR > 60 mL/min (>60); GLUCOSE 108 mg/dl (70-220); POTASSIUM 4.2 mmol/L (3.5-5.1); SODIUM 138 mmol/L (135-144)
[2018-09-30 05:34] LABS: AADO2 Arterial 614.7 mmHg (7.0-24.0); Allen Test ACCEPTAB; Arterial Base Excess 3.8 mmol/L (-3.0-3); Arterial Blood Gas Oxygen Sat 91.4 mmHG (95.0-98.0); Arterial COHb 0.3 % (0.0-3.0); Arterial HCO3 26.7 mmol/L (22.0-26.0); Arterial MetHb 0.1 % (0.0-1.5); MODE MASK - NRB; Site Right Radial
[2018-09-30] MEDS: MEROPENEM 1 GM/50ML(PMX) 50 ML IVPB ×3 (05:59→21:31)
[2018-09-30] MEDS: PANTOPRAZOLE 40 MG INJ IV (06:01)
[2018-09-30] MEDS: ALBUTEROL/IPRATROPIUM (NEB) 3 ML AMP HHN ×3 (07:52→20:19)
[2018-09-30] MEDS: VANCOMYCIN 1 GM 250 ML IVPB ×2 (08:08→20:28)
[2018-09-30] MEDS: FUROSEMIDE 20 MG INJ IV (08:49)
[2018-09-30] MEDS: POLYETHYLENE GLYCOL 17 GM PACKET NGT (08:49)
[2018-09-30] MEDS: ENOXAPARIN 40 MG/0.4 ML SYG SC (08:50)
[2018-09-30] MEDS: ARTIFICIAL TEARS 15 ML OPH BOTH EYES ×3 (08:51→17:00)
[2018-09-30] MEDS: INSULIN GLARGINE [LANTus] (100 UNITS/ML) SYG SC (08:51)
[2018-09-30] MEDS: DOCUSATE SODIUM 100 MG CAP PO ×2 (09:00→20:28)
[2018-09-30] MEDS: VORICONAZOLE 200 MG/100 ML 100 ML IVPB ×2 (10:18→20:28)
[2018-09-30 11:46] LABS: PROCALCITONIN <0.10 ng/mL (<0.10)
[2018-09-30 12:08] LABS: AADO2 Arterial 619.8 mmHg (7.0-24.0); Allen Test ACCEPTAB; Arterial Base Excess 2.4 mmol/L (-3.0-3); Arterial Blood Gas Oxygen Sat 91.1 mmHG (95.0-98.0); Arterial COHb 0.3 % (0.0-3.0); Arterial Fraction of Oxyhgb 90.5 % (93.0-99.0); Arterial HCO3 24.7 mmol/L (22.0-26.0); Arterial MetHb 0.4 % (0.0-1.5); Arterial pCO2 30.7 mmhg (35-45); MODE HFNC; Site Left Radial
[2018-10-01 00:26] LABS: INFLUENZA VIRUS A/B SOURCE SWAB
[2018-10-01] MEDS: INSULIN ASPART [NOVOLOG] 3 ML PEN SC ×5 (01:00→21:00)
[2018-10-01] MEDS: ALBUTEROL/IPRATROPIUM (NEB) 3 ML AMP HHN ×4 (01:02→20:08)
[2018-10-01] MEDS: ACCU-CHEK XX (01:39)
[2018-10-01] MEDS: METHYLPREDNISOLONE 125 MG INJ IV ×4 (04:29→21:14)
[2018-10-01] MEDS: PANTOPRAZOLE 40 MG INJ IV (05:20)
[2018-10-01] MEDS: MEROPENEM 1 GM/50ML(PMX) 50 ML IVPB ×3 (05:20→21:14)
[2018-10-01 07:17] LABS: ADD MAN DIFF? NO
[2018-10-01 07:22] LABS: ABNORMAL IP MESSAGE 1; HEMATOCRIT 25.2 % (37.0-47.0); HEMOGLOBIN 8.4 g/dl (12.0-16.0); LYMPHOCYTES # 0.5 10^3/ul (0.8-2.9); LYMPHOCYTES % 6.8 % (15.0-51.0); MEAN CORPUSCULAR HEMOGLOBIN 32.7 pg (29.0-33.0); MEAN CORPUSCULAR HGB CONC 33.3 g/dl (32.0-37.0); MEAN CORPUSCULAR VOLUME 98.1 fl (82.0-101.0); MEAN PLATELET VOLUME 11.9 fl (7.4-10.4); MONOCYTE # 0.5 10^3/ul (0.3-0.9); MONOCYTES % 6.3 % (0.0-11.0); NEUTROPHIL # 6.9 10^3/ul (1.6-7.5); NUCLEATED RED BLOOD CELLS% 0.3 /100WBC (0.0-0.0); PLATELET COUNT 100 10^3/UL (140-415); RED BLOOD COUNT 2.57 10^6/ul (4.20-5.40); RED CELL DISTRIBUTION WIDTH 14.7 % (11.5-14.5)
[2018-10-01 07:27] LABS: POSITIVE DIFF @See below
[2018-10-01 07:43] LABS: ANION GAP 2 (5-13); BLOOD UREA NITROGEN 39 mg/dl (7-20); CALCIUM 7.3 mg/dl (8.4-10.2); CARBON DIOXIDE 29 mmol/L (21-31); CHLORIDE 106 mmol/L (97-110); CREATININE 0.72 mg/dl (0.44-1.00); Estimated GFR > 60 mL/min (>60); GLUCOSE 99 mg/dl (70-220); SODIUM 137 mmol/L (135-144)
[2018-10-01 07:47] LABS: VANCOMYCIN,TROUGH 19.8 ug/ml (10.0-20.0)
[2018-10-01 08:12] LABS: POTASSIUM 3.9 mmol/L (3.5-5.1)
[2018-10-01] MEDS: VANCOMYCIN 1 GM 250 ML IVPB (08:12)
[2018-10-01] MEDS: INSULIN GLARGINE [LANTus] (100 UNITS/ML) SYG SC (08:16)
[2018-10-01 08:39] LABS: AADO2 Arterial 524.9 mmHg (7.0-24.0); Allen Test ACCEPTAB; Arterial Base Excess 5.1 mmol/L (-3.0-3); Arterial Blood Gas Oxygen Sat 95.4 mmHG (95.0-98.0); Arterial COHb 0.3 % (0.0-3.0); Arterial Fraction of Oxyhgb 94.7 % (93.0-99.0); Arterial HCO3 28.1 mmol/L (22.0-26.0); Arterial MetHb 0.4 % (0.0-1.5); MODE HFNC; Site Right Radial
[2018-10-01] MEDS: POLYETHYLENE GLYCOL 17 GM PACKET NGT (09:00)
[2018-10-01] MEDS: FUROSEMIDE 20 MG INJ IV (09:32)
[2018-10-01] MEDS: DOCUSATE SODIUM 100 MG CAP PO ×2 (09:33→21:00)
[2018-10-01] MEDS: ENOXAPARIN 40 MG/0.4 ML SYG SC (09:34)
[2018-10-01] MEDS: VORICONAZOLE 200 MG/100 ML 100 ML IVPB ×2 (11:06→21:13)
[2018-10-02] MEDS: ALBUTEROL/IPRATROPIUM (NEB) 3 ML AMP HHN ×4 (01:20→20:52)
[2018-10-02] MEDS: ACCU-CHEK XX (02:16)
[2018-10-02] MEDS: METHYLPREDNISOLONE 125 MG INJ IV (04:44)
[2018-10-02 05:19] LABS: ADD MAN DIFF? NO
[2018-10-02 05:25] LABS: WHITE BLOOD COUNT 5.8 10^3/ul (4.8-10.8)
[2018-10-02 05:25] LABS: ABNORMAL IP MESSAGE 1; HEMOGLOBIN 8.1 g/dl (12.0-16.0); LYMPHOCYTES # 0.6 10^3/ul (0.8-2.9); LYMPHOCYTES % 10.1 % (15.0-51.0); MEAN CORPUSCULAR HEMOGLOBIN 31.9 pg (29.0-33.0); MEAN CORPUSCULAR HGB CONC 32.4 g/dl (32.0-37.0); MEAN CORPUSCULAR VOLUME 98.4 fl (82.0-101.0); MONOCYTE # 0.4 10^3/ul (0.3-0.9); MONOCYTES % 6.9 % (0.0-11.0); NEUTROPHIL # 4.7 10^3/ul (1.6-7.5); NUCLEATED RED BLOOD CELLS% 0.3 /100WBC (0.0-0.0); PLATELET COUNT 95 10^3/UL (140-415); RED BLOOD COUNT 2.54 10^6/ul (4.20-5.40); RED CELL DISTRIBUTION WIDTH 14.8 % (11.5-14.5)
[2018-10-02 05:26] LABS: POSITIVE DIFF @See below
[2018-10-02] MEDS: PANTOPRAZOLE 40 MG INJ IV (05:32)
[2018-10-02] MEDS: MEROPENEM 1 GM/50ML(PMX) 50 ML IVPB ×3 (05:33→22:44)
[2018-10-02 05:44] LABS: ANION GAP 8 (5-13); BLOOD UREA NITROGEN 36 mg/dl (7-20); CALCIUM 6.9 mg/dl (8.4-10.2); CARBON DIOXIDE 29 mmol/L (21-31); CHLORIDE 106 mmol/L (97-110); CREATININE 0.74 mg/dl (0.44-1.00); Estimated GFR > 60 mL/min (>60); GLUCOSE 111 mg/dl (70-220); MAGNESIUM 2.4 mg/dl (1.7-2.5); POTASSIUM 3.5 mmol/L (3.5-5.1); SODIUM 143 mmol/L (135-144)
[2018-10-02] MEDS ORDERED: VANCOMYCIN HCL 1.5 GM in SOD CHLORIDE 0.9% 250 ML IVPB (08:00)
[2018-10-02] MEDS: INSULIN ASPART [NOVOLOG] 3 ML PEN SC ×4 (08:13→21:00)
[2018-10-02] MEDS: INSULIN GLARGINE [LANTus] (100 UNITS/ML) SYG SC (08:30)
[2018-10-02] MEDS: DOCUSATE SODIUM 100 MG CAP PO ×2 (09:00→21:00)
[2018-10-02] MEDS: POLYETHYLENE GLYCOL 17 GM PACKET NGT (09:00)
[2018-10-02] MEDS: VORICONAZOLE 200 MG/100 ML 100 ML IVPB (09:47)
[2018-10-02] MEDS: ENOXAPARIN 40 MG/0.4 ML SYG SC (09:48)
[2018-10-02] MEDS: FUROSEMIDE 20 MG INJ IV (09:48)
[2018-10-02] MEDS: TRIMETHOPRIM/SULFAMETHOX (DS) TAB NGT (19:03)
[2018-10-03] MEDS: VORICONAZOLE 200 MG/100 ML 100 ML IVPB ×2 (00:51→08:16)
[2018-10-03] MEDS: ALBUTEROL/IPRATROPIUM (NEB) 3 ML AMP HHN ×4 (01:31→19:59)
[2018-10-03] MEDS: ACCU-CHEK XX (02:00)
[2018-10-03 05:38] LABS: ADD MAN DIFF? NO
[2018-10-03 05:41] LABS: ABNORMAL IP MESSAGE 1; HEMATOCRIT 25.7 % (37.0-47.0); HEMOGLOBIN 8.6 g/dl (12.0-16.0); LYMPHOCYTES # 0.7 10^3/ul (0.8-2.9); LYMPHOCYTES % 10.2 % (15.0-51.0); MEAN CORPUSCULAR HEMOGLOBIN 32.3 pg (29.0-33.0); MEAN CORPUSCULAR HGB CONC 33.5 g/dl (32.0-37.0); MEAN CORPUSCULAR VOLUME 96.6 fl (82.0-101.0); MEAN PLATELET VOLUME 11.8 fl (7.4-10.4); MONOCYTE # 0.7 10^3/ul (0.3-0.9); NEUTROPHIL # 5.1 10^3/ul (1.6-7.5); NEUTROPHILS % 78.7 % (39.0-77.0); NUCLEATED RED BLOOD CELLS% 0.3 /100WBC (0.0-0.0); PLATELET COUNT 99 10^3/UL (140-415); RED BLOOD COUNT 2.66 10^6/ul (4.20-5.40); RED CELL DISTRIBUTION WIDTH 14.7 % (11.5-14.5)
[2018-10-03 05:41] LABS: WHITE BLOOD COUNT 6.5 10^3/ul (4.8-10.8)
[2018-10-03 05:44] LABS: POSITIVE DIFF @See below
[2018-10-03 06:05] LABS: ANION GAP 1 (5-13); BLOOD UREA NITROGEN 36 mg/dl (7-20); CALCIUM 7.3 mg/dl (8.4-10.2); CARBON DIOXIDE 30 mmol/L (21-31); CHLORIDE 107 mmol/L (97-110); CREATININE 0.69 mg/dl (0.44-1.00); Estimated GFR > 60 mL/min (>60); GLUCOSE 94 mg/dl (70-220); POTASSIUM 3.4 mmol/L (3.5-5.1); SODIUM 138 mmol/L (135-144)
[2018-10-03] MEDS: INSULIN ASPART [NOVOLOG] 3 ML PEN SC ×4 (06:07→21:00)
[2018-10-03] MEDS: MEROPENEM 1 GM/50ML(PMX) 50 ML IVPB ×3 (06:08→22:00)
[2018-10-03] MEDS: FUROSEMIDE 20 MG INJ IV (08:09)
[2018-10-03] MEDS: predniSONE 20 MG TAB PO (08:10)
[2018-10-03] MEDS: DOCUSATE SODIUM 100 MG CAP PO ×2 (08:10→20:54)
[2018-10-03] MEDS: ENOXAPARIN 40 MG/0.4 ML SYG SC (08:15)
[2018-10-03] MEDS: INSULIN GLARGINE [LANTus] (100 UNITS/ML) SYG SC (08:18)
[2018-10-03] MEDS: POTASSIUM CHLORIDE (SR) 20 MEQ TAB PO (10:37)
[2018-10-03] MEDS: VORICONAZOLE 200 MG TAB PO (20:53)
[2018-10-04] MEDS: ALBUTEROL/IPRATROPIUM (NEB) 3 ML AMP HHN ×4 (01:51→19:27)
[2018-10-04] MEDS: ACCU-CHEK XX (02:00)
[2018-10-04 06:13] LABS: ANION GAP 3 (5-13); BLOOD UREA NITROGEN 32 mg/dl (7-20); CALCIUM 7.1 mg/dl (8.4-10.2); CARBON DIOXIDE 30 mmol/L (21-31); CHLORIDE 106 mmol/L (97-110); CREATININE 0.58 mg/dl (0.44-1.00); Estimated GFR > 60 mL/min (>60); GLUCOSE 85 mg/dl (70-220); POTASSIUM 3.9 mmol/L (3.5-5.1); SODIUM 139 mmol/L (135-144)
[2018-10-04] MEDS: MEROPENEM 1 GM/50ML(PMX) 50 ML IVPB ×3 (06:34→21:14)
[2018-10-04] MEDS: INSULIN ASPART [NOVOLOG] 3 ML PEN SC ×4 (06:34→20:09)
[2018-10-04] MEDS: VORICONAZOLE 200 MG TAB PO ×2 (08:20→20:09)
[2018-10-04] MEDS: FUROSEMIDE 20 MG INJ IV (08:20)
[2018-10-04] MEDS: predniSONE 20 MG TAB PO (08:20)
[2018-10-04] MEDS: DOCUSATE SODIUM 100 MG CAP PO ×2 (08:20→20:09)
[2018-10-04] MEDS: ENOXAPARIN 40 MG/0.4 ML SYG SC (08:25)
[2018-10-04] MEDS: INSULIN GLARGINE [LANTus] (100 UNITS/ML) SYG SC (08:25)
[2018-10-04] MEDS: TRIMETHOPRIM/SULFAMETHOX (DS) TAB NGT (17:26)
[2018-10-04] MEDS: MELATONIN 5 MG TABLET PO (23:00)
[2018-10-05] MEDS: ACCU-CHEK XX (00:29)
[2018-10-05] MEDS: ALBUTEROL/IPRATROPIUM (NEB) 3 ML AMP HHN ×4 (01:42→20:53)
[2018-10-05] MEDS: MEROPENEM 1 GM/50ML(PMX) 50 ML IVPB ×3 (05:05→22:37)
[2018-10-05] MEDS: SOD CHLORIDE 0.9% 250 ML IV (05:06)
[2018-10-05] MEDS: ALBUMIN HUMAN 25% 100 ML IV (05:06)
[2018-10-05] MEDS: INSULIN ASPART [NOVOLOG] 3 ML PEN SC ×4 (07:00→20:16)
[2018-10-05] MEDS ORDERED: predniSONE 10 MG TAB (07:35)
[2018-10-05] MEDS: FUROSEMIDE 20 MG INJ IV (07:40)
[2018-10-05] MEDS: DOCUSATE SODIUM 100 MG CAP PO ×2 (07:41→20:17)
[2018-10-05] MEDS: VORICONAZOLE 200 MG TAB PO (07:41)
[2018-10-05] MEDS: predniSONE 10 MG TAB PO (07:41)
[2018-10-05] MEDS: ENOXAPARIN 40 MG/0.4 ML SYG SC (07:54)
[2018-10-05] MEDS: INSULIN GLARGINE [LANTus] (100 UNITS/ML) SYG SC (07:54)
[2018-10-05] MEDS: MELATONIN 5 MG TABLET PO (22:34)
[2018-10-06] MEDS: ALBUTEROL/IPRATROPIUM (NEB) 3 ML AMP HHN ×5 (01:27→23:52)
[2018-10-06] MEDS: ACCU-CHEK XX (01:37)
[2018-10-06] MEDS: MEROPENEM 1 GM/50ML(PMX) 50 ML IVPB ×3 (05:15→22:18)
[2018-10-06] MEDS: INSULIN ASPART [NOVOLOG] 3 ML PEN SC ×3 (07:00→16:46)
[2018-10-06] MEDS: FUROSEMIDE 20 MG INJ IV (07:55)
[2018-10-06] MEDS: DOCUSATE SODIUM 100 MG CAP PO ×2 (07:55→21:09)
[2018-10-06] MEDS: predniSONE 20 MG TAB PO (08:02)
[2018-10-06] MEDS: INSULIN GLARGINE [LANTus] (100 UNITS/ML) SYG SC (08:26)
[2018-10-06] MEDS: ENOXAPARIN 40 MG/0.4 ML SYG SC (08:27)
[2018-10-06] MEDS ORDERED: FUROSEMIDE 40 MG INJ (16:34)
[2018-10-06] MEDS: FUROSEMIDE 40 MG INJ IV (16:45)
[2018-10-06] MEDS: TRIMETHOPRIM/SULFAMETHOX (DS) TAB NGT (16:45)
[2018-10-06] MEDS: Insulin NOVOLOG SS MODERATE Algorithm (SS with meals and bedtime) SC (21:00)
[2018-10-06] MEDS: MELATONIN 5 MG TABLET PO (21:09)
[2018-10-07] MEDS: ACCU-CHEK XX (02:00)
[2018-10-07] MEDS: morphine LIQ (10 MG/5 ML) CUP GTB (02:37)
[2018-10-07] MEDS: MEROPENEM 1 GM/50ML(PMX) 50 ML IVPB ×3 (05:27→20:24)
[2018-10-07] MEDS: FUROSEMIDE 40 MG INJ IV ×2 (05:34→17:19)
[2018-10-07 06:25] LABS: ADD MAN DIFF? NO
[2018-10-07 06:31] LABS: WHITE BLOOD COUNT 5.1 10^3/ul (4.8-10.8)
[2018-10-07 06:31] LABS: ABNORMAL IP MESSAGE 1; EOSINOPHILS # 0.2 10^3/ul (0.0-0.5); EOSINOPHILS % 2.9 % (0.0-7.0); HEMATOCRIT 26.6 % (37.0-47.0); HEMOGLOBIN 8.6 g/dl (12.0-16.0); LYMPHOCYTES # 0.6 10^3/ul (0.8-2.9); LYMPHOCYTES % 10.9 % (15.0-51.0); MEAN CORPUSCULAR HEMOGLOBIN 32.2 pg (29.0-33.0); MEAN CORPUSCULAR HGB CONC 32.3 g/dl (32.0-37.0); MEAN CORPUSCULAR VOLUME 99.6 fl (82.0-101.0); MEAN PLATELET VOLUME 11.1 fl (7.4-10.4); MONOCYTE # 0.6 10^3/ul (0.3-0.9); MONOCYTES % 11.9 % (0.0-11.0); NEUTROPHIL # 3.8 10^3/ul (1.6-7.5); NEUTROPHILS % 73.3 % (39.0-77.0); PLATELET COUNT 81 10^3/UL (140-415); RED BLOOD COUNT 2.67 10^6/ul (4.20-5.40); RED CELL DISTRIBUTION WIDTH 15.8 % (11.5-14.5)
[2018-10-07 06:42] LABS: POSITIVE DIFF @See below
[2018-10-07 06:58] LABS: ANION GAP 3 (5-13); BLOOD UREA NITROGEN 23 mg/dl (7-20); CALCIUM 7.6 mg/dl (8.4-10.2); CARBON DIOXIDE 32 mmol/L (21-31); CHLORIDE 102 mmol/L (97-110); Estimated GFR > 60 mL/min (>60); GLUCOSE 73 mg/dl (70-220); MAGNESIUM 2.1 mg/dl (1.7-2.5); POTASSIUM 3.5 mmol/L (3.5-5.1); SODIUM 137 mmol/L (135-144)
[2018-10-07] MEDS: Insulin NOVOLOG SS MODERATE Algorithm (SS with meals and bedtime) SC ×4 (07:47→20:23)
[2018-10-07] MEDS: INSULIN GLARGINE [LANTus] (100 UNITS/ML) SYG SC (07:57)
[2018-10-07] MEDS: ALBUTEROL/IPRATROPIUM (NEB) 3 ML AMP HHN ×4 (08:00→19:42)
[2018-10-07] MEDS: DOCUSATE SODIUM 100 MG CAP PO ×2 (09:00→20:24)
[2018-10-07] MEDS: predniSONE 5 MG TAB PO (09:11)
[2018-10-07] MEDS: ENOXAPARIN 40 MG/0.4 ML SYG SC (09:15)
[2018-10-07] MEDS: BACLOFEN 10 MG TAB PO ×2 (12:11→20:23)
[2018-10-07] MEDS: MAGNESIUM OXIDE 400 MG TAB PO ×2 (12:11→20:23)
[2018-10-07] MEDS: MELATONIN 5 MG TABLET PO (20:23)
[2018-10-08] MEDS: ACCU-CHEK XX (02:00)
[2018-10-08] MEDS: ALBUTEROL/IPRATROPIUM (NEB) 3 ML AMP HHN ×4 (02:00→19:52)
[2018-10-08] MEDS: MEROPENEM 1 GM/50ML(PMX) 50 ML IVPB ×3 (05:32→21:47)
[2018-10-08] MEDS: FUROSEMIDE 40 MG INJ IV ×2 (05:32→17:09)
[2018-10-08] MEDS: Insulin NOVOLOG SS MODERATE Algorithm (SS with meals and bedtime) SC ×4 (07:27→20:14)
[2018-10-08] MEDS: INSULIN GLARGINE [LANTus] (100 UNITS/ML) SYG SC (07:38)
[2018-10-08] MEDS: HYDROCODONE/APAP (5/325) TAB PO (08:01)
[2018-10-08] MEDS: MAGNESIUM OXIDE 400 MG TAB PO ×2 (09:21→20:14)
[2018-10-08] MEDS: DOCUSATE SODIUM 100 MG CAP PO ×2 (09:21→20:17)
[2018-10-08] MEDS: predniSONE 5 MG TAB PO (09:21)
[2018-10-08] MEDS: BACLOFEN 10 MG TAB PO ×2 (09:21→20:14)
[2018-10-08] MEDS: ENOXAPARIN 40 MG/0.4 ML SYG SC (09:26)
[2018-10-08] MEDS: MELATONIN 5 MG TABLET PO (20:14)
[2018-10-09] MEDS: ALBUTEROL/IPRATROPIUM (NEB) 3 ML AMP HHN ×3 (01:48→13:48)
[2018-10-09] MEDS: ACCU-CHEK XX (02:00)
[2018-10-09] MEDS: HYDROCODONE/APAP (5/325) TAB PO (04:23)
[2018-10-09 05:10] LABS: ADD MAN DIFF? NO
[2018-10-09 05:14] LABS: ABNORMAL IP MESSAGE 1; EOSINOPHILS # 0.1 10^3/ul (0.0-0.5); EOSINOPHILS % 1.8 % (0.0-7.0); HEMATOCRIT 26.8 % (37.0-47.0); HEMOGLOBIN 8.6 g/dl (12.0-16.0); LYMPHOCYTES # 0.7 10^3/ul (0.8-2.9); LYMPHOCYTES % 13.5 % (15.0-51.0); MEAN CORPUSCULAR HEMOGLOBIN 32.3 pg (29.0-33.0); MEAN CORPUSCULAR HGB CONC 32.1 g/dl (32.0-37.0); MEAN CORPUSCULAR VOLUME 100.8 fl (82.0-101.0); MEAN PLATELET VOLUME 11.2 fl (7.4-10.4); MONOCYTE # 0.6 10^3/ul (0.3-0.9); NEUTROPHIL # 3.7 10^3/ul (1.6-7.5); NEUTROPHILS % 72.9 % (39.0-77.0); PLATELET COUNT 68 10^3/UL (140-415); RED BLOOD COUNT 2.66 10^6/ul (4.20-5.40); RED CELL DISTRIBUTION WIDTH 16.4 % (11.5-14.5)
[2018-10-09 05:20] LABS: POSITIVE DIFF @See below
[2018-10-09 05:47] LABS: ANION GAP 3 (5-13); BLOOD UREA NITROGEN 26 mg/dl (7-20); CALCIUM 7.8 mg/dl (8.4-10.2); CARBON DIOXIDE 32 mmol/L (21-31); CHLORIDE 103 mmol/L (97-110); CREATININE 0.58 mg/dl (0.44-1.00); Estimated GFR > 60 mL/min (>60); GLUCOSE 81 mg/dl (70-220); MAGNESIUM 2.2 mg/dl (1.7-2.5); POTASSIUM 3.4 mmol/L (3.5-5.1); SODIUM 138 mmol/L (135-144)
[2018-10-09] MEDS: Insulin NOVOLOG SS MODERATE Algorithm (SS with meals and bedtime) SC ×2 (07:51→12:00)
[2018-10-09] MEDS: BACLOFEN 10 MG TAB PO (08:30)
[2018-10-09] MEDS: MAGNESIUM OXIDE 400 MG TAB PO (08:30)
[2018-10-09] MEDS: predniSONE 5 MG TAB PO (08:31)
[2018-10-09] MEDS: INSULIN GLARGINE [LANTus] (100 UNITS/ML) SYG SC (08:49)
[2018-10-09] MEDS: ENOXAPARIN 40 MG/0.4 ML SYG SC (08:49)
[2018-10-09] MEDS: DOCUSATE SODIUM 100 MG CAP PO (08:52)
[2018-10-09] MEDS: POTASSIUM CHLORIDE (SR) 20 MEQ TAB PO (13:14)
== END 2018-10-09 17:00 | disposition home or self-care (01) | DRG 207 ==
LOC: E/R 10:33 → 6WM 10-02 21:17 → ICU 12:57
PROC: 5A1955Z Respiratory Ventilation, Greater than 96 Consecutive Hours (ICD-10-PCS; principal; 2018-09-19)
PROC: 0BH18EZ Insertion of Endotracheal Airway into Trachea, Via Natural or Artificial Opening Endoscopic (ICD-10-PCS; 2018-09-19)
PROC: 06HY33Z Insertion of Infusion Device into Lower Vein, Percutaneous Approach (ICD-10-PCS; 2018-09-19)
PROC: 02H633Z Insertion of Infusion Device into Right Atrium, Percutaneous Approach (ICD-10-PCS; 2018-09-20)
DX: J80 Acute respiratory distress syndrome (principal); J18.9 Pneumonia, unspecified organism; C79.9 Secondary malignant neoplasm of unspecified site; N17.9 Acute kidney failure, unspecified; R57.9 Shock, unspecified; R53.81 Other malaise; I89.0 Lymphedema, not elsewhere classified; D64.81 Anemia due to antineoplastic chemotherapy; D69.59 Other secondary thrombocytopenia; C43.9 Malignant melanoma of skin, unspecified; T45.1X5A Adverse effect of antineoplastic and immunosuppressive drugs, initial encounter; E87.6 Hypokalemia; G72.9 Myopathy, unspecified; G62.9 Polyneuropathy, unspecified
CPT/HCPCS: 31500; 36415; 36569; 36600; 71045; 71260; 76937; 80048; 80053; 80202; 81001; 82803; 82962; 83036; 83605; 83735; 84100; 84145; 84484; 85025; 85610; 85730; 86403; 86606; 86635; 87015; 87040; 87081; 87086; 87275; 87276; 87279; 87280; 87281; 87385; 87400; 87449; 87502; 89220; 92526; 92610; 93005; 93306; 93970; 94002; 94003; 94640; 94644; 94664; 94668; 94770; 96365; 96367; 96375; 97110; 97116; 97163; 97530; 99291-25